=== PATIENT | female | born 1940 | race Caucasian/White ===

== ENCOUNTER 2018-02-28 07:36 | Inpatient (IN) ==
[2018-02-28] MEDS ORDERED: LEVOFLOXACIN INJ 750 MG in PREMIX 1 EACH IV STA (08:04)
[2018-02-28 08:44] LABS: Basophils # 0.1 10*3/uL (0.0-0.2); Basophils % 0.5 % (0.0-0.8); Eosinophils # 0.2 10*3/uL (0.0-0.87); Eosinophils % 1.9 % (0.00-10.9); Hematocrit 43.4 VOL% (35.7-47.0); Hemoglobin 14.8 GM/DL (12.0-16.0); Immature Granulocytes % 0.5 %; Immature Granulocytes Absolute 0.05 #; Lymphocytes # 1.5 10*3/uL (1.4-4.0); Lymphocytes % 15.2 % (21.3-54.2); Mean Corpuscular HGB Conc 34.1 GM/DL (32-36); Mean Corpuscular Hemoglobin 30 PG (27-34); Mean Corpuscular Volume 88.6 FL (87-102); Mean Platelet Volume 9.8 FL (9.6-12.0); Monocytes # 0.8 10*3/uL (0.11-0.8); Monocytes % 8.4 % (1.7-12.7); Neutrophils # 7.1 10*3/uL (1.4-7.4); Neutrophils % 73.5 % (38.7-73.9); Platelet Count 134 T/CUMM (130-400); White Blood Count 9.7 T/CUMM (4-12)
[2018-02-28 08:50] LABS: Apearance,Urine CLEAR (Clear); Bacteria,Urine Many /HPF (Few); Bilirubin,Urine Negative (Negative); Blood, Urine Small mg/dL (Negative); Glucose,Urine (UA) Negative (Negative); Ketones,Urine Negative (Negative); Mucus,Urine Occasional /LPF (Occasional); Nitrite,Urine Negative (Negative); Protein,Urine Negative; RBC,Urine 4 /HPF (0-4); Squamous Epithelial Cell,Urine Occasional /HPF (0-10); Urine Color Yellow (Yellow); Urine Specific Gravity 1.013 (1.001-1.035); Urine Urobilinogen < 2.0 EU/DL (0.2-1.0); WBC,Urine 2 /HPF (0-6)
[2018-02-28 09:07] LABS: Albumin 3.3 G/DL (3.4-5.0); Bilirubin,Total 1.6 MG/DL (0.2-1.0); Calcium 8.9 MG/DL (8.5-10.1); Osmolality,Calculated 280.5 MOS/KG (273-304); Potassium 3.9 MMOL/L (3.5-5.1); Total Protein 6.4 G/DL (6.4-8.3)
[2018-02-28] MEDS ORDERED: metroNIDAZOLE INJ 500 MG in PREMIX 1 EACH IV STA (09:56)
[2018-02-28] MEDS ORDERED: ONDANSETRON 4 MG/2 ML VIAL IV PRN (10:01)
[2018-02-28] MEDS ORDERED: ACETAMINOPHEN 325 MG TABLET PO PRN (10:01)
[2018-02-28] MEDS: SODIUM CHLORIDE 0.45% 1,000 ML IV SCH ×2 (10:42→22:11)
[2018-02-28] MEDS: ENOXAPARIN 30 MG/0.3 ML SYRINGE SUBCUT SCH (10:44)
[2018-02-28] MEDS: metroNIDAZOLE INJ 500 MG in PREMIX 1 EACH IV SCH ×2 (11:36→19:02)
[2018-02-28] MEDS ORDERED: CLORAZEPATE 3.75 MG TABLET PO PRN (11:58)
[2018-02-28] MEDS ORDERED: amLODIPine 5 MG TABLET PO SCH (12:00)
[2018-02-28] MEDS ORDERED: traMADol 50 MG TABLET PO PRN (12:08)
[2018-02-28] MEDS ORDERED: MORPHINE 4 MG/1 ML VIAL IM PRN (12:09)
[2018-02-28] MEDS: METOPROLOL TARTRATE 50 MG TABLET PO SCH ×2 (14:42→21:04)
[2018-02-28] MEDS: ASPIRIN CHEW 81 MG TABLET PO SCH (14:42)
[2018-02-28] MEDS: LOSARTAN 50 MG TABLET PO SCH ×2 (14:42→21:04)
[2018-02-28] MEDS: SERTRALINE 50 MG TABLET PO SCH (21:04)
[2018-03-01] MEDS: metroNIDAZOLE INJ 500 MG in PREMIX 1 EACH IV SCH ×3 (02:46→21:10)
[2018-03-01 03:51] LABS: Basophils % 0.3 % (0.0-0.8); Eosinophils # 0.3 10*3/uL (0.0-0.87); Eosinophils % 2.4 % (0.00-10.9); Hematocrit 39.1 VOL% (35.7-47.0); Hemoglobin 13.3 GM/DL (12.0-16.0); Immature Granulocytes % 0.4 %; Immature Granulocytes Absolute 0.04 #; Lymphocytes # 1.5 10*3/uL (1.4-4.0); Lymphocytes % 14.8 % (21.3-54.2); Mean Corpuscular Hemoglobin 30 PG (27-34); Mean Corpuscular Volume 88.5 FL (87-102); Monocytes # 0.9 10*3/uL (0.11-0.8); Monocytes % 9.1 % (1.7-12.7); Neutrophils # 7.5 10*3/uL (1.4-7.4); Platelet Count 125 T/CUMM (130-400); Red Blood Count 4.42 MC/CUMM (3.8-5.5); Red Cell Distribution Width 13.7 % (9.3-17.3); White Blood Count 10.3 T/CUMM (4-12)
[2018-03-01 04:04] LABS: Albumin 2.7 G/DL (3.4-5.0); Bilirubin,Direct 0.64 MG/DL (0.0-0.20); Bilirubin,Indirect 2.5 MG/DL (0.0-1.0); Bilirubin,Total 3.1 MG/DL (0.2-1.0); Calcium 8.1 MG/DL (8.5-10.1); Potassium 3.4 MMOL/L (3.5-5.1); Total Protein 5.8 G/DL (6.4-8.3)
[2018-03-01] MEDS: METOPROLOL TARTRATE 50 MG TABLET PO SCH ×2 (08:45→21:06)
[2018-03-01] MEDS: PANTOPRAZOLE 40 MG TABLET PO SCH (08:45)
[2018-03-01] MEDS: ASPIRIN CHEW 81 MG TABLET PO SCH (08:46)
[2018-03-01] MEDS: LOSARTAN 50 MG TABLET PO SCH ×2 (08:46→21:06)
[2018-03-01] MEDS: SODIUM CHLORIDE 0.45% 1,000 ML IV SCH ×2 (08:47→11:58)
[2018-03-01] MEDS ORDERED: LEVOFLOXACIN INJ 500 MG in PREMIX 1 EACH IV SCH (09:00)
[2018-03-01] MEDS: ENOXAPARIN 30 MG/0.3 ML SYRINGE SUBCUT SCH (11:57)
[2018-03-01] MEDS: SERTRALINE 50 MG TABLET PO SCH (21:06)
[2018-03-01] MEDS: SODIUM CHLOR 0.45% KCL 20 MEQ 20 MEQ/1,000 ML BAG IV SCH (22:59)
[2018-03-01] MEDS ORDERED: ALUM/MAG/SIMETH/LIDO VISC 1:1 30 ML BOTTLE PO ONE (23:00)
[2018-03-02 03:57] LABS: Red Blood Count 4.43 MC/CUMM (3.8-5.5); White Blood Count 6.9 T/CUMM (4-12)
[2018-03-02 03:58] LABS: Basophils % 0.4 % (0.0-0.8); Eosinophils # 0.3 10*3/uL (0.0-0.87); Eosinophils % 3.9 % (0.00-10.9); Hematocrit 39.2 VOL% (35.7-47.0); Hemoglobin 13.3 GM/DL (12.0-16.0); Immature Granulocytes % 0.4 %; Immature Granulocytes Absolute 0.03 #; Lymphocytes # 1.4 10*3/uL (1.4-4.0); Lymphocytes % 20.5 % (21.3-54.2); Mean Corpuscular HGB Conc 33.9 GM/DL (32-36); Mean Corpuscular Hemoglobin 30 PG (27-34); Mean Corpuscular Volume 88.5 FL (87-102); Mean Platelet Volume 10.2 FL (9.6-12.0); Monocytes # 0.6 10*3/uL (0.11-0.8); Monocytes % 8.6 % (1.7-12.7); Neutrophils # 4.6 10*3/uL (1.4-7.4); Neutrophils % 66.2 % (38.7-73.9); Platelet Count 122 T/CUMM (130-400); Red Cell Distribution Width 13.6 % (9.3-17.3)
[2018-03-02 04:06] LABS: Albumin 2.8 G/DL (3.4-5.0); Bilirubin,Direct 0.43 MG/DL (0.0-0.20); Bilirubin,Indirect 1.8 MG/DL (0.0-1.0); Bilirubin,Total 2.2 MG/DL (0.2-1.0); Calcium 8.6 MG/DL (8.5-10.1); Osmolality,Calculated 275.7 MOS/KG (273-304); Potassium 3.8 MMOL/L (3.5-5.1)
[2018-03-02] MEDS: metroNIDAZOLE INJ 500 MG in PREMIX 1 EACH IV SCH ×3 (04:57→20:37)
[2018-03-02] MEDS: LEVOFLOXACIN INJ 250 MG in PREMIX 1 EACH IV SCH (10:05)
[2018-03-02] MEDS: ASPIRIN CHEW 81 MG TABLET PO SCH (10:06)
[2018-03-02] MEDS: LOSARTAN 50 MG TABLET PO SCH ×2 (10:06→20:33)
[2018-03-02] MEDS: PANTOPRAZOLE 40 MG TABLET PO SCH (10:06)
[2018-03-02] MEDS: METOPROLOL TARTRATE 50 MG TABLET PO SCH ×2 (10:06→20:33)
[2018-03-02] MEDS: ENOXAPARIN 30 MG/0.3 ML SYRINGE SUBCUT SCH (10:06)
[2018-03-02] MEDS ORDERED: DOCUSATE SODIUM 100 MG CAPSULE PO PRN (12:14)
[2018-03-02] MEDS: hydrALAZINE 20 MG/1 ML VIAL IV PRN (14:15)
[2018-03-02] MEDS: SERTRALINE 50 MG TABLET PO SCH (20:33)
[2018-03-02] MEDS: DICYCLOMINE 10 MG CAPSULE PO SCH (20:33)
[2018-03-03] MEDS: NITROFURANTOIN MACRO/MONO 100 MG CAPSULE PO SCH ×3 (00:13→20:19)
[2018-03-03] MEDS: SODIUM CHLOR 0.45% KCL 20 MEQ 20 MEQ/1,000 ML BAG IV SCH (00:42)
[2018-03-03] MEDS: metroNIDAZOLE INJ 500 MG in PREMIX 1 EACH IV SCH ×3 (05:16→20:20)
[2018-03-03 06:14] LABS: Basophils % 0.4 % (0.0-0.8); Eosinophils # 0.3 10*3/uL (0.0-0.87); Eosinophils % 3.5 % (0.00-10.9); Hematocrit 38.8 VOL% (35.7-47.0); Hemoglobin 13.1 GM/DL (12.0-16.0); Immature Granulocytes % 0.6 %; Immature Granulocytes Absolute 0.04 #; Lymphocytes # 1.6 10*3/uL (1.4-4.0); Lymphocytes % 22.3 % (21.3-54.2); Mean Corpuscular HGB Conc 33.8 GM/DL (32-36); Mean Corpuscular Hemoglobin 30 PG (27-34); Mean Corpuscular Volume 88.4 FL (87-102); Mean Platelet Volume 10.2 FL (9.6-12.0); Monocytes # 0.7 10*3/uL (0.11-0.8); Neutrophils # 4.6 10*3/uL (1.4-7.4); Neutrophils % 63.2 % (38.7-73.9); Platelet Count 134 T/CUMM (130-400); Red Blood Count 4.39 MC/CUMM (3.8-5.5); Red Cell Distribution Width 14.1 % (9.3-17.3); White Blood Count 7.2 T/CUMM (4-12)
[2018-03-03 06:43] LABS: Calcium 8.5 MG/DL (8.5-10.1); Osmolality,Calculated 274.7 MOS/KG (273-304); Potassium 3.6 MMOL/L (3.5-5.1)
[2018-03-03 07:16] LABS: Albumin 2.6 G/DL (3.4-5.0); Bilirubin,Direct 0.25 MG/DL (0.0-0.20); Bilirubin,Indirect 1.2 MG/DL (0.0-1.0); Bilirubin,Total 1.4 MG/DL (0.2-1.0); Total Protein 5.7 G/DL (6.4-8.3)
[2018-03-03] MEDS: TRIAMTERENE/HCTZ 37.5-25 MG TABLET PO SCH (09:57)
[2018-03-03] MEDS: ASPIRIN CHEW 81 MG TABLET PO SCH (09:58)
[2018-03-03] MEDS: DICYCLOMINE 10 MG CAPSULE PO SCH ×2 (09:58→20:20)
[2018-03-03] MEDS: METOPROLOL TARTRATE 50 MG TABLET PO SCH ×2 (09:58→20:19)
[2018-03-03] MEDS: LOSARTAN 50 MG TABLET PO SCH ×2 (09:59→20:19)
[2018-03-03] MEDS: PANTOPRAZOLE 40 MG TABLET PO SCH (09:59)
[2018-03-03] MEDS: ENOXAPARIN 30 MG/0.3 ML SYRINGE SUBCUT SCH (10:01)
[2018-03-03] MEDS: LEVOFLOXACIN INJ 250 MG in PREMIX 1 EACH IV SCH (10:03)
[2018-03-03] MEDS: SERTRALINE 50 MG TABLET PO SCH (20:20)
[2018-03-04] MEDS: hydrALAZINE 20 MG/1 ML VIAL IV PRN (00:04)
[2018-03-04] MEDS: SODIUM CHLOR 0.45% KCL 20 MEQ 20 MEQ/1,000 ML BAG IV SCH (00:08)
[2018-03-04] MEDS: metroNIDAZOLE INJ 500 MG in PREMIX 1 EACH IV SCH ×2 (05:05→13:58)
[2018-03-04 06:19] LABS: Albumin 2.8 G/DL (3.4-5.0); Bilirubin,Direct 0.21 MG/DL (0.0-0.20); Bilirubin,Indirect 0.9 MG/DL (0.0-1.0); Bilirubin,Total 1.1 MG/DL (0.2-1.0); Calcium 8.3 MG/DL (8.5-10.1); Osmolality,Calculated 275.8 MOS/KG (273-304); Potassium 3.6 MMOL/L (3.5-5.1); Total Protein 5.6 G/DL (6.4-8.3)
[2018-03-04] MEDS: LEVOFLOXACIN INJ 250 MG in PREMIX 1 EACH IV SCH (09:04)
[2018-03-04] MEDS: LOSARTAN 50 MG TABLET PO SCH (09:08)
[2018-03-04] MEDS: NITROFURANTOIN MACRO/MONO 100 MG CAPSULE PO SCH (09:08)
[2018-03-04] MEDS: TRIAMTERENE/HCTZ 37.5-25 MG TABLET PO SCH (09:09)
[2018-03-04] MEDS: PANTOPRAZOLE 40 MG TABLET PO SCH (09:09)
[2018-03-04] MEDS: DICYCLOMINE 10 MG CAPSULE PO SCH (09:10)
[2018-03-04] MEDS: METOPROLOL TARTRATE 50 MG TABLET PO SCH (09:13)
[2018-03-04] MEDS: ASPIRIN CHEW 81 MG TABLET PO SCH (09:14)
[2018-03-04] MEDS: ENOXAPARIN 30 MG/0.3 ML SYRINGE SUBCUT SCH (14:05)
[2018-03-04 16:44] VITALS: BP 176/90
== END 2018-03-04 16:47 | disposition home or self-care (01) | DRG 392 ==
LOC: N.EDINP 07:36 → N.ED 07:36 → N.EDINP 11:13 → N.4E 11:22
PROVIDERS: ADMIT Family Medicine; ATTEND Family Medicine

== ENCOUNTER 2019-06-19 08:59 | Inpatient (IN) ==
[2019-06-19] MEDS ORDERED: SODIUM CHLORIDE 0.9% 1,000 ML IV STA ×2 (09:22→12:37)
[2019-06-19] MEDS ORDERED: ONDANSETRON 4 MG/2 ML VIAL IV STA (09:22)
[2019-06-19] MEDS ORDERED: HYDROmorphone 2 MG/1 ML VIAL IV STA (09:22)
[2019-06-19] MEDS ORDERED: PIPERACILLIN/TAZOBACTAM 3,375 MG in SODIUM CHLORIDE 0.9% 100 ML IV STA (09:22)
[2019-06-19] MEDS ORDERED: ONDANSETRON 4 MG/2 ML VIAL ONE (09:49)
[2019-06-19] MEDS ORDERED: HYDROmorphone 2 MG/1 ML VIAL ONE (09:49)
[2019-06-19] MEDS ORDERED: SODIUM CHLORIDE 0.9% 100 ML IV ONE (10:15)
[2019-06-19] MEDS ORDERED: PIPERACILLIN/TAZOBACTAM 3,375 MG VIAL IV ONE (10:15)
[2019-06-19 10:22] LABS: Basophils % 0.2 % (0.0-0.8); Eosinophils % 0.3 % (0.00-10.9); Hematocrit 44.2 VOL% (35.7-47.0); Hemoglobin 14.8 GM/DL (12.0-16.0); Immature Granulocytes % 0.4 %; Immature Granulocytes Absolute 0.06 #; Lymphocytes # 1.6 10*3/uL (1.4-4.0); Lymphocytes % 11.6 % (21.3-54.2); Mean Corpuscular HGB Conc 33.5 GM/DL (32-36); Mean Corpuscular Volume 90.8 FL (87-102); Mean Platelet Volume 9.8 FL (9.6-12.0); Monocytes % 5.6 % (1.7-12.7); Neutrophils % 81.9 % (38.7-73.9); Platelet Count 225 T/CUMM (130-400); Red Blood Count 4.87 MC/CUMM (3.8-5.5); Red Cell Distribution Width 13.8 % (9.3-17.3)
[2019-06-19 10:25] LABS: Apearance,Urine CLEAR (Clear); Bilirubin,Urine Negative (Negative); Blood, Urine Small mg/dL (Negative); Glucose,Urine (UA) Negative (Negative); Hyaline Casts,Urine 3 /LPF (0-3); Ketones,Urine Negative (Negative); Mucus,Urine Occasional /LPF (Occasional); Nitrite,Urine Negative (Negative); Protein,Urine Negative; RBC,Urine 13 /HPF (0-4); Squamous Epithelial Cell,Urine Occasional /HPF (0-10); Urine Color Yellow (Yellow); Urine Specific Gravity 1.013 (1.001-1.035); Urine Urobilinogen < 2.0 EU/DL (0.2-1.0); WBC,Urine 1 /HPF (0-6)
[2019-06-19 10:35] LABS: Alanine Aminotransferase 20 U/L (13-56); Albumin 3.6 G/DL (3.4-5.0); Alkaline Phosphatase 57 U/L (45-117); Aspartate Amino Transferase 15 U/L (0-37); Blood Urea Nitrogen 41 MG/DL (7-18); Calcium 9.3 MG/DL (8.5-10.1); Estimated Glom Filtration Rate 23 ML/MIN; Glucose 102 MG/DL (74-106); Osmolality,Calculated 284.7 MOS/KG (273-304); Total Protein 6.6 G/DL (6.4-8.3)
[2019-06-19] MEDS ORDERED: ACETAMINOPHEN 325 MG TABLET PO PRN (11:47)
[2019-06-19] MEDS ORDERED: POLYETHYLENE GLYCOL POWDER 17 GM PACK PO PRN (13:21)
[2019-06-19] MEDS ORDERED: CLORAZEPATE 3.75 MG TABLET PO PRN (13:21)
[2019-06-19] MEDS: SODIUM CHLORIDE 0.45% 1,000 ML IV SCH (13:33)
[2019-06-19] MEDS: metroNIDAZOLE INJ 500 MG in PREMIX 1 EACH IV SCH ×2 (13:33→21:40)
[2019-06-19] MEDS ORDERED: INFLUENZA VIRUS VACCINE 0.5 ML SYRINGE IM ONE (13:41)
[2019-06-19] MEDS: PIPERACILLIN/TAZOBACTAM 3,375 MG in SODIUM CHLORIDE 0.9% 100 ML IV SCH (18:02)
[2019-06-19] MEDS ORDERED: LOSARTAN 50 MG TABLET PO SCH (21:00)
[2019-06-19] MEDS: ENOXAPARIN 30 MG/0.3 ML SYRINGE SUBCUT SCH (21:36)
[2019-06-19] MEDS: DOCUSATE SODIUM 100 MG CAPSULE PO SCH (21:37)
[2019-06-19] MEDS: SERTRALINE 50 MG TABLET PO SCH (21:37)
[2019-06-19] MEDS: METOPROLOL TARTRATE 100 MG TABLET PO SCH (21:37)
[2019-06-20] MEDS: HYDROmorphone 2 MG/1 ML VIAL IV PRN ×3 (01:46→18:36)
[2019-06-20] MEDS: ONDANSETRON 4 MG/2 ML VIAL IV PRN ×3 (01:47→18:36)
[2019-06-20] MEDS: PIPERACILLIN/TAZOBACTAM 3,375 MG in SODIUM CHLORIDE 0.9% 100 ML IV SCH ×3 (02:37→18:26)
[2019-06-20] MEDS: SODIUM CHLORIDE 0.45% 1,000 ML IV SCH ×4 (02:39→23:45)
[2019-06-20 04:57] LABS: Basophils % 0.2 % (0.0-0.8); Eosinophils % 0.3 % (0.00-10.9); Hematocrit 41.7 VOL% (35.7-47.0); Hemoglobin 13.7 GM/DL (12.0-16.0); Immature Granulocytes % 0.6 %; Immature Granulocytes Absolute 0.08 #; Lymphocytes # 1.1 10*3/uL (1.4-4.0); Lymphocytes % 7.8 % (21.3-54.2); Mean Corpuscular HGB Conc 32.9 GM/DL (32-36); Mean Corpuscular Volume 92.5 FL (87-102); Monocytes % 4.8 % (1.7-12.7); Neutrophils % 86.3 % (38.7-73.9); Platelet Count 144 T/CUMM (130-400); Red Blood Count 4.51 MC/CUMM (3.8-5.5); Red Cell Distribution Width 14.2 % (9.3-17.3)
[2019-06-20 06:02] LABS: Band Neutrophils 2 % (0-10); Lymphocytes 7 % (20-55); Segmented Neutrophils 88 % (50-85); Total Cells Counted 100
[2019-06-20 06:03] LABS: Anisocytosis 1+; Platelet Estimate Adequate
[2019-06-20] MEDS: metroNIDAZOLE INJ 500 MG in PREMIX 1 EACH IV SCH ×3 (06:51→23:43)
[2019-06-20] MEDS ORDERED: TRIAMTERENE/HCTZ 37.5-25 MG TABLET PO SCH (09:00)
[2019-06-20] MEDS: METOPROLOL TARTRATE 100 MG TABLET PO SCH ×2 (09:16→21:07)
[2019-06-20] MEDS: PANTOPRAZOLE 40 MG TABLET PO SCH (09:16)
[2019-06-20] MEDS: amLODIPine 5 MG TABLET PO SCH (09:16)
[2019-06-20] MEDS: ASPIRIN CHEW 81 MG TABLET PO SCH (09:16)
[2019-06-20] MEDS: DOCUSATE SODIUM 100 MG CAPSULE PO SCH ×2 (09:16→21:06)
[2019-06-20] MEDS: ENOXAPARIN 30 MG/0.3 ML SYRINGE SUBCUT SCH (21:07)
[2019-06-20] MEDS: SERTRALINE 50 MG TABLET PO SCH (21:07)
[2019-06-21] MEDS: PIPERACILLIN/TAZOBACTAM 3,375 MG in SODIUM CHLORIDE 0.9% 100 ML IV SCH ×3 (02:38→18:42)
[2019-06-21 05:07] LABS: Basophils # 0.1 10*3/uL (0.0-0.2); Basophils % 0.3 % (0.0-0.8); Eosinophils % 0.2 % (0.00-10.9); Hematocrit 42.3 VOL% (35.7-47.0); Immature Granulocytes % 0.7 %; Immature Granulocytes Absolute 0.15 #; Lymphocytes # 1.2 10*3/uL (1.4-4.0); Lymphocytes % 5.7 % (21.3-54.2); Mean Corpuscular HGB Conc 33.1 GM/DL (32-36); Mean Corpuscular Volume 91.6 FL (87-102); Mean Platelet Volume 9.5 FL (9.6-12.0); Monocytes % 3.5 % (1.7-12.7); Neutrophils % 89.6 % (38.7-73.9); Platelet Count 179 T/CUMM (130-400); Red Blood Count 4.62 MC/CUMM (3.8-5.5); Red Cell Distribution Width 14.1 % (9.3-17.3); White Blood Count 20.5 T/CUMM (4-12)
[2019-06-21 05:35] LABS: Anisocytosis 1+; Band Neutrophils 1 % (0-10); Calcium 8.5 MG/DL (8.5-10.1); Lymphocytes 2 % (20-55); Myelocytes 1 %; Osmolality,Calculated 277.1 MOS/KG (273-304); Segmented Neutrophils 93 % (50-85); Total Cells Counted 100
[2019-06-21 05:36] LABS: Platelet Estimate Adequate
[2019-06-21] MEDS: metroNIDAZOLE INJ 500 MG in PREMIX 1 EACH IV SCH ×3 (06:46→23:22)
[2019-06-21] MEDS: SODIUM CHLORIDE 0.45% 1,000 ML IV SCH ×3 (09:02→23:23)
[2019-06-21] MEDS: amLODIPine 5 MG TABLET PO SCH (09:08)
[2019-06-21] MEDS: DOCUSATE SODIUM 100 MG CAPSULE PO SCH ×2 (09:08→21:22)
[2019-06-21] MEDS: PANTOPRAZOLE 40 MG TABLET PO SCH (09:08)
[2019-06-21] MEDS: ASPIRIN CHEW 81 MG TABLET PO SCH (09:08)
[2019-06-21] MEDS: METOPROLOL TARTRATE 100 MG TABLET PO SCH ×2 (09:08→21:23)
[2019-06-21] MEDS ORDERED: MAGNESIUM SULF RIDER 4 GM in PREMIX 1 EACH IV PRN (10:10)
[2019-06-21] MEDS ORDERED: MAGNESIUM SULF RIDER 2 GM in PREMIX 1 EACH IV PRN (10:10)
[2019-06-21] MEDS ORDERED: traMADol 50 MG TABLET PO PRN (11:43)
[2019-06-21] MEDS: ENOXAPARIN 30 MG/0.3 ML SYRINGE SUBCUT SCH (21:20)
[2019-06-21] MEDS: SERTRALINE 50 MG TABLET PO SCH (21:22)
[2019-06-22] MEDS: PIPERACILLIN/TAZOBACTAM 3,375 MG in SODIUM CHLORIDE 0.9% 100 ML IV SCH ×3 (02:11→19:38)
[2019-06-22 05:29] LABS: Basophils % 0.1 % (0.0-0.8); Eosinophils # 0.1 10*3/uL (0.0-0.87); Eosinophils % 0.9 % (0.00-10.9); Hematocrit 38.9 VOL% (35.7-47.0); Hemoglobin 13.2 GM/DL (12.0-16.0); Immature Granulocytes % 1.1 %; Immature Granulocytes Absolute 0.16 #; Lymphocytes % 6.6 % (21.3-54.2); Mean Corpuscular HGB Conc 33.9 GM/DL (32-36); Mean Corpuscular Volume 90.7 FL (87-102); Mean Platelet Volume 9.9 FL (9.6-12.0); Monocytes % 5.2 % (1.7-12.7); Neutrophils % 86.1 % (38.7-73.9); Platelet Count 152 T/CUMM (130-400); Red Blood Count 4.29 MC/CUMM (3.8-5.5); Red Cell Distribution Width 13.8 % (9.3-17.3); White Blood Count 15.2 T/CUMM (4-12)
[2019-06-22 05:38] LABS: Calcium 8.7 MG/DL (8.5-10.1); Osmolality,Calculated 278.7 MOS/KG (273-304)
[2019-06-22] MEDS: metroNIDAZOLE INJ 500 MG in PREMIX 1 EACH IV SCH ×2 (06:30→15:33)
[2019-06-22] MEDS: SODIUM CHLORIDE 0.45% 1,000 ML IV SCH ×3 (07:10→20:21)
[2019-06-22] MEDS: METOPROLOL TARTRATE 100 MG TABLET PO SCH ×2 (08:46→21:13)
[2019-06-22] MEDS: DOCUSATE SODIUM 100 MG CAPSULE PO SCH ×2 (08:46→21:13)
[2019-06-22] MEDS: ASPIRIN CHEW 81 MG TABLET PO SCH (08:46)
[2019-06-22] MEDS: amLODIPine 5 MG TABLET PO SCH (08:47)
[2019-06-22] MEDS: PANTOPRAZOLE 40 MG TABLET PO SCH (08:47)
[2019-06-22] MEDS: SERTRALINE 50 MG TABLET PO SCH (21:13)
[2019-06-22] MEDS: ENOXAPARIN 40 MG/0.4 ML SYRINGE SUBCUT SCH (21:13)
[2019-06-23] MEDS: metroNIDAZOLE INJ 500 MG in PREMIX 1 EACH IV SCH ×3 (00:54→17:18)
[2019-06-23] MEDS: PIPERACILLIN/TAZOBACTAM 3,375 MG in SODIUM CHLORIDE 0.9% 100 ML IV SCH ×3 (02:26→20:56)
[2019-06-23 05:37] LABS: Basophils % 0.3 % (0.0-0.8); Eosinophils # 0.3 10*3/uL (0.0-0.87); Eosinophils % 2.2 % (0.00-10.9); Hematocrit 37.5 VOL% (35.7-47.0); Hemoglobin 12.7 GM/DL (12.0-16.0); Immature Granulocytes Absolute 0.12 #; Mean Corpuscular HGB Conc 33.9 GM/DL (32-36); Mean Corpuscular Volume 90.4 FL (87-102); Mean Platelet Volume 9.6 FL (9.6-12.0); Monocytes % 7.9 % (1.7-12.7); Neutrophils % 80.6 % (38.7-73.9); Platelet Count 176 T/CUMM (130-400); Red Blood Count 4.15 MC/CUMM (3.8-5.5); Red Cell Distribution Width 13.9 % (9.3-17.3); White Blood Count 12.1 T/CUMM (4-12)
[2019-06-23 05:56] LABS: Calcium 8.2 MG/DL (8.5-10.1)
[2019-06-23] MEDS: ASPIRIN CHEW 81 MG TABLET PO SCH (08:05)
[2019-06-23] MEDS: PANTOPRAZOLE 40 MG TABLET PO SCH (08:05)
[2019-06-23] MEDS: DOCUSATE SODIUM 100 MG CAPSULE PO SCH (08:05)
[2019-06-23] MEDS: amLODIPine 5 MG TABLET PO SCH (08:05)
[2019-06-23] MEDS: METOPROLOL TARTRATE 100 MG TABLET PO SCH ×2 (08:06→20:59)
[2019-06-23] MEDS ORDERED: POTASSIUM CHLORIDE 20 MEQ TABLET PO ONE (09:18)
[2019-06-23] MEDS: ENOXAPARIN 40 MG/0.4 ML SYRINGE SUBCUT SCH (20:59)
[2019-06-23] MEDS: SERTRALINE 50 MG TABLET PO SCH (20:59)
[2019-06-23] MEDS: SODIUM CHLORIDE 0.45% 1,000 ML IV SCH ×2 (21:00)
[2019-06-24] MEDS: metroNIDAZOLE INJ 500 MG in PREMIX 1 EACH IV SCH ×3 (01:15→17:55)
[2019-06-24] MEDS: PIPERACILLIN/TAZOBACTAM 3,375 MG in SODIUM CHLORIDE 0.9% 100 ML IV SCH ×3 (04:07→20:30)
[2019-06-24] MEDS: SODIUM CHLORIDE 0.45% 1,000 ML IV SCH ×3 (04:07→20:32)
[2019-06-24 05:00] LABS: Basophils % 0.4 % (0.0-0.8); Eosinophils # 0.3 10*3/uL (0.0-0.87); Eosinophils % 3.1 % (0.00-10.9); Hematocrit 38.4 VOL% (35.7-47.0); Hemoglobin 12.8 GM/DL (12.0-16.0); Immature Granulocytes % 2.9 %; Immature Granulocytes Absolute 0.32 #; Lymphocytes # 1.1 10*3/uL (1.4-4.0); Lymphocytes % 10.3 % (21.3-54.2); Mean Corpuscular HGB Conc 33.3 GM/DL (32-36); Mean Platelet Volume 9.3 FL (9.6-12.0); Neutrophils % 74.3 % (38.7-73.9); Platelet Count 160 T/CUMM (130-400); Red Blood Count 4.22 MC/CUMM (3.8-5.5); Red Cell Distribution Width 13.7 % (9.3-17.3); White Blood Count 11.1 T/CUMM (4-12)
[2019-06-24 05:17] LABS: Calcium 8.3 MG/DL (8.5-10.1); Osmolality,Calculated 271.1 MOS/KG (273-304)
[2019-06-24] MEDS: PANTOPRAZOLE 40 MG TABLET PO SCH (09:35)
[2019-06-24] MEDS: amLODIPine 5 MG TABLET PO SCH (09:35)
[2019-06-24] MEDS: ASPIRIN CHEW 81 MG TABLET PO SCH (09:35)
[2019-06-24] MEDS: METOPROLOL TARTRATE 100 MG TABLET PO SCH ×2 (09:35→20:28)
[2019-06-24] MEDS ORDERED: ALUM/MAG/SIMETH/LIDO VISC 1:1 30 ML BOTTLE PO ONE (11:50)
[2019-06-24] MEDS: POTASSIUM CHLORIDE 20 MEQ TABLET PO SCH ×2 (12:47→20:28)
[2019-06-24] MEDS: SERTRALINE 50 MG TABLET PO SCH (20:28)
[2019-06-25] MEDS: metroNIDAZOLE INJ 500 MG in PREMIX 1 EACH IV SCH ×3 (01:00→12:49)
[2019-06-25] MEDS: PIPERACILLIN/TAZOBACTAM 3,375 MG in SODIUM CHLORIDE 0.9% 100 ML IV SCH ×2 (05:19→14:38)
[2019-06-25] MEDS: SODIUM CHLORIDE 0.45% 1,000 ML IV SCH ×2 (05:21→14:38)
[2019-06-25 06:04] LABS: Basophils # 0.1 10*3/uL (0.0-0.2); Basophils % 0.4 % (0.0-0.8); Eosinophils # 0.3 10*3/uL (0.0-0.87); Hematocrit 38.6 VOL% (35.7-47.0); Hemoglobin 12.8 GM/DL (12.0-16.0); Immature Granulocytes % 3.8 %; Immature Granulocytes Absolute 0.47 #; Lymphocytes # 1.1 10*3/uL (1.4-4.0); Lymphocytes % 8.6 % (21.3-54.2); Mean Corpuscular HGB Conc 33.2 GM/DL (32-36); Mean Corpuscular Volume 89.6 FL (87-102); Mean Platelet Volume 9.9 FL (9.6-12.0); Monocytes % 6.9 % (1.7-12.7); Neutrophils % 78.3 % (38.7-73.9); Platelet Count 177 T/CUMM (130-400); Red Blood Count 4.31 MC/CUMM (3.8-5.5); Red Cell Distribution Width 13.8 % (9.3-17.3); White Blood Count 12.4 T/CUMM (4-12)
[2019-06-25 06:21] LABS: Calcium 8.4 MG/DL (8.5-10.1); Osmolality,Calculated 274.8 MOS/KG (273-304)
[2019-06-25] MEDS ORDERED: LACTATED RINGERS 1,000 ML IV SCH (08:00)
[2019-06-25] MEDS: METOPROLOL TARTRATE 100 MG TABLET PO SCH (08:43)
[2019-06-25] MEDS: PANTOPRAZOLE 40 MG TABLET PO SCH (08:43)
[2019-06-25] MEDS: amLODIPine 5 MG TABLET PO SCH (08:43)
[2019-06-25] MEDS: ASPIRIN CHEW 81 MG TABLET PO SCH (08:43)
[2019-06-25] MEDS: POTASSIUM CHLORIDE 20 MEQ TABLET PO SCH (08:43)
[2019-06-25] MEDS ORDERED: FLUCONAZOLE 100 MG TABLET PO SCH (09:00)
[2019-06-25] MEDS ORDERED: TRIAMTERENE/HCTZ 37.5-25 MG TABLET PO SCH (09:00)
[2019-06-25] MEDS ORDERED: PROPOFOL 200 MG/20 ML VIAL IV ONE (11:23)
[2019-06-25] MEDS ORDERED: LIDOCAINE 100 MG/5 ML SYRINGE ONE (11:23)
[2019-06-25] MEDS ORDERED: POTASSIUM CHLORIDE 20 MEQ TABLET PO ONE (13:09)
[2019-06-25 13:13] VITALS: BP 157/70
== END 2019-06-25 15:36 | disposition home or self-care (01) | DRG 392 ==
LOC: N.ED 08:59 → N.EDINP 11:47 → N.3E 13:26
PROVIDERS: ADMIT Family Medicine; ATTEND Family Medicine

== ENCOUNTER 2019-07-15 08:54 | Inpatient (IN) ==
[2019-07-15] MEDS ORDERED: SODIUM CHLORIDE 0.9% 1,000 ML IV STA (09:22)
[2019-07-15 10:19] LABS: Basophils # 0.1 10*3/uL (0.0-0.2); Basophils % 0.6 % (0.0-0.8); Eosinophils # 0.2 10*3/uL (0.0-0.87); Hematocrit 41.6 VOL% (35.7-47.0); Immature Granulocytes % 2.3 %; Immature Granulocytes Absolute 0.25 #; Lymphocytes # 1.6 10*3/uL (1.4-4.0); Lymphocytes % 14.5 % (21.3-54.2); Mean Corpuscular HGB Conc 33.7 GM/DL (32-36); Mean Corpuscular Volume 86.8 FL (87-102); Mean Platelet Volume 9.6 FL (9.6-12.0); Monocytes % 10.6 % (1.7-12.7); Platelet Count 276 T/CUMM (130-400); Red Blood Count 4.79 MC/CUMM (3.8-5.5); Red Cell Distribution Width 13.2 % (9.3-17.3); White Blood Count 10.8 T/CUMM (4-12)
[2019-07-15 10:24] LABS: Amorphous Crystals,Urine Occasional /HPF (Few); Apearance,Urine Slightly Hazy (Clear); Bacteria,Urine Occasional /HPF (Few); Bilirubin,Urine Negative (Negative); Blood, Urine Moderate mg/dL (Negative); Glucose,Urine (UA) Negative (Negative); Hyaline Casts,Urine 5 /LPF (0-3); Ketones,Urine Negative (Negative); Mucus,Urine Occasional /LPF (Occasional); Nitrite,Urine Negative (Negative); Protein,Urine 30 MG/DL; RBC,Urine 2 /HPF (0-4); Squamous Epithelial Cell,Urine Occasional /HPF (0-10); Urine Color Amber (Yellow); Urine Specific Gravity 1.018 (1.001-1.035); Urine Urobilinogen < 2.0 EU/DL (0.2-1.0); WBC,Urine 17 /HPF (0-6)
[2019-07-15] MEDS ORDERED: PIPERACILLIN/TAZOBACTAM 3,375 MG in SODIUM CHLORIDE 0.9% 100 ML IV STA (10:32)
[2019-07-15] MEDS ORDERED: ACETAMINOPHEN 325 MG TABLET PO PRN (10:34)
[2019-07-15 10:37] LABS: Albumin 2.9 G/DL (3.4-5.0); Calcium 9.7 MG/DL (8.5-10.1); Osmolality,Calculated 268.5 MOS/KG (273-304); Total Protein 7.4 G/DL (6.4-8.3)
[2019-07-15] MEDS: SODIUM CHLORIDE 0.9% 1,000 ML IV SCH ×3 (14:30→19:08)
[2019-07-15] MEDS ORDERED: INFLUENZA VIRUS VACCINE 0.5 ML SYRINGE IM ONE (15:20)
[2019-07-15] MEDS: metroNIDAZOLE INJ 500 MG in PREMIX 1 EACH IV SCH ×2 (15:52→22:28)
[2019-07-15] MEDS ORDERED: LEVOFLOXACIN INJ 500 MG in PREMIX 1 EACH IV ONE (16:00)
[2019-07-15] MEDS: CLINDAMYCIN INJ 600 MG in PREMIX 1 EACH IV SCH (18:45)
[2019-07-15] MEDS: DOCUSATE SODIUM 100 MG CAPSULE PO SCH (21:16)
[2019-07-15] MEDS: METOPROLOL TARTRATE 100 MG TABLET PO SCH (21:17)
[2019-07-16] MEDS: CLINDAMYCIN INJ 600 MG in PREMIX 1 EACH IV SCH ×5 (00:23→23:55)
[2019-07-16] MEDS: SODIUM CHLORIDE 0.9% 1,000 ML IV SCH ×4 (02:55→22:54)
[2019-07-16 04:45] LABS: Basophils # 0.1 10*3/uL (0.0-0.2); Basophils % 0.6 % (0.0-0.8); Eosinophils # 0.2 10*3/uL (0.0-0.87); Eosinophils % 2.8 % (0.00-10.9); Hematocrit 32.7 VOL% (35.7-47.0); Hemoglobin 10.8 GM/DL (12.0-16.0); Immature Granulocytes % 2.3 %; Immature Granulocytes Absolute 0.18 #; Lymphocytes # 1.2 10*3/uL (1.4-4.0); Lymphocytes % 15.8 % (21.3-54.2); Mean Corpuscular Volume 88.1 FL (87-102); Mean Platelet Volume 9.7 FL (9.6-12.0); Monocytes % 12.8 % (1.7-12.7); Neutrophils % 65.7 % (38.7-73.9); Platelet Count 214 T/CUMM (130-400); Red Blood Count 3.71 MC/CUMM (3.8-5.5); Red Cell Distribution Width 13.2 % (9.3-17.3); White Blood Count 7.9 T/CUMM (4-12)
[2019-07-16 05:03] LABS: Albumin 2.2 G/DL (3.4-5.0); Bilirubin,Total 0.7 MG/DL (0.2-1.0); Calcium 8.3 MG/DL (8.5-10.1); Total Protein 5.4 G/DL (6.4-8.3)
[2019-07-16] MEDS: metroNIDAZOLE INJ 500 MG in PREMIX 1 EACH IV SCH (06:53)
[2019-07-16] MEDS: MAGNESIUM CHLORIDE 64 MG TABLET PO SCH (08:46)
[2019-07-16] MEDS: amLODIPine 5 MG TABLET PO SCH (08:46)
[2019-07-16] MEDS: PANTOPRAZOLE 40 MG TABLET PO SCH (08:47)
[2019-07-16] MEDS: DOCUSATE SODIUM 100 MG CAPSULE PO SCH ×2 (08:47→20:47)
[2019-07-16] MEDS: METOPROLOL TARTRATE 100 MG TABLET PO SCH ×2 (08:47→20:47)
[2019-07-16] MEDS: LEVOFLOXACIN INJ 250 MG in PREMIX 1 EACH IV SCH (15:50)
[2019-07-17] MEDS: SODIUM CHLORIDE 0.9% 1,000 ML IV SCH ×4 (04:19→20:10)
[2019-07-17 05:10] LABS: Basophils % 0.4 % (0.0-0.8); Eosinophils # 0.2 10*3/uL (0.0-0.87); Eosinophils % 2.7 % (0.00-10.9); Hematocrit 31.9 VOL% (35.7-47.0); Hemoglobin 10.5 GM/DL (12.0-16.0); Immature Granulocytes % 2.6 %; Immature Granulocytes Absolute 0.18 #; Lymphocytes # 1.3 10*3/uL (1.4-4.0); Lymphocytes % 18.9 % (21.3-54.2); Mean Corpuscular HGB Conc 32.9 GM/DL (32-36); Mean Corpuscular Volume 88.1 FL (87-102); Mean Platelet Volume 9.9 FL (9.6-12.0); Monocytes % 12.4 % (1.7-12.7); Platelet Count 205 T/CUMM (130-400); Red Blood Count 3.62 MC/CUMM (3.8-5.5); Red Cell Distribution Width 13.2 % (9.3-17.3); White Blood Count 6.9 T/CUMM (4-12)
[2019-07-17 05:34] LABS: Albumin 2.3 G/DL (3.4-5.0); Bilirubin,Total 0.6 MG/DL (0.2-1.0); Calcium 8.2 MG/DL (8.5-10.1); Osmolality,Calculated 281.3 MOS/KG (273-304); Total Protein 5.5 G/DL (6.4-8.3)
[2019-07-17] MEDS: CLINDAMYCIN INJ 600 MG in PREMIX 1 EACH IV SCH ×3 (06:10→17:46)
[2019-07-17] MEDS: amLODIPine 5 MG TABLET PO SCH (09:06)
[2019-07-17] MEDS: DOCUSATE SODIUM 100 MG CAPSULE PO SCH ×2 (09:06→21:55)
[2019-07-17] MEDS: MAGNESIUM SULF RIDER 4 GM in PREMIX 1 EACH IV PRN (09:06)
[2019-07-17] MEDS: PANTOPRAZOLE 40 MG TABLET PO SCH (09:06)
[2019-07-17] MEDS: METOPROLOL TARTRATE 100 MG TABLET PO SCH ×2 (09:06→21:55)
[2019-07-17] MEDS: MAGNESIUM CHLORIDE 64 MG TABLET PO SCH (09:06)
[2019-07-17] MEDS: LEVOFLOXACIN INJ 250 MG in PREMIX 1 EACH IV SCH (15:31)
[2019-07-17] MEDS: POTASSIUM CHLORIDE RIDER 10 MEQ in PREMIX 1 EACH IV PRN ×3 (19:30→23:46)
[2019-07-18] MEDS: CLINDAMYCIN INJ 600 MG in PREMIX 1 EACH IV SCH ×4 (00:53→19:15)
[2019-07-18] MEDS: SODIUM CHLORIDE 0.9% 1,000 ML IV SCH ×3 (04:15→19:00)
[2019-07-18 05:58] LABS: Basophils % 0.3 % (0.0-0.8); Eosinophils # 0.2 10*3/uL (0.0-0.87); Hematocrit 31.8 VOL% (35.7-47.0); Hemoglobin 10.5 GM/DL (12.0-16.0); Immature Granulocytes % 1.6 %; Immature Granulocytes Absolute 0.14 #; Lymphocytes # 1.4 10*3/uL (1.4-4.0); Lymphocytes % 15.8 % (21.3-54.2); Mean Corpuscular Volume 88.1 FL (87-102); Mean Platelet Volume 9.6 FL (9.6-12.0); Monocytes % 12.3 % (1.7-12.7); Platelet Count 211 T/CUMM (130-400); Red Blood Count 3.61 MC/CUMM (3.8-5.5); Red Cell Distribution Width 13.2 % (9.3-17.3); White Blood Count 8.8 T/CUMM (4-12)
[2019-07-18 06:22] LABS: Alanine Aminotransferase < 9 U/L (13-56); Albumin 2.4 G/DL (3.4-5.0); Alkaline Phosphatase 60 U/L (45-117); Aspartate Amino Transferase 9 U/L (0-37); Blood Urea Nitrogen 10 MG/DL (7-18); Calcium 8.4 MG/DL (8.5-10.1); Estimated Glom Filtration Rate 32 ML/MIN; Glucose 105 MG/DL (74-106); Osmolality,Calculated 277.4 MOS/KG (273-304); Total Protein 5.6 G/DL (6.4-8.3)
[2019-07-18] MEDS: PANTOPRAZOLE 40 MG TABLET PO SCH (10:01)
[2019-07-18] MEDS: amLODIPine 5 MG TABLET PO SCH (10:01)
[2019-07-18] MEDS: METOPROLOL TARTRATE 100 MG TABLET PO SCH ×2 (10:02→21:48)
[2019-07-18] MEDS: DOCUSATE SODIUM 100 MG CAPSULE PO SCH ×2 (10:02→21:47)
[2019-07-18] MEDS: MAGNESIUM CHLORIDE 64 MG TABLET PO SCH (10:02)
[2019-07-18] MEDS: POTASSIUM CHLORIDE RIDER 10 MEQ in PREMIX 1 EACH IV PRN ×3 (10:05→17:23)
[2019-07-18] MEDS: LEVOFLOXACIN INJ 250 MG in PREMIX 1 EACH IV SCH (15:39)
[2019-07-18] MEDS: ONDANSETRON 4 MG/2 ML VIAL IV PRN (22:32)
[2019-07-19] MEDS: SODIUM CHLORIDE 0.9% 1,000 ML IV SCH ×4 (00:04→21:45)
[2019-07-19] MEDS: CLINDAMYCIN INJ 600 MG in PREMIX 1 EACH IV SCH ×4 (01:36→19:14)
[2019-07-19 05:39] LABS: Basophils % 0.5 % (0.0-0.8); Eosinophils # 0.2 10*3/uL (0.0-0.87); Eosinophils % 2.5 % (0.00-10.9); Hematocrit 31.4 VOL% (35.7-47.0); Hemoglobin 10.1 GM/DL (12.0-16.0); Immature Granulocytes % 1.6 %; Immature Granulocytes Absolute 0.13 #; Lymphocytes # 1.2 10*3/uL (1.4-4.0); Lymphocytes % 15.4 % (21.3-54.2); Mean Corpuscular HGB Conc 32.2 GM/DL (32-36); Mean Corpuscular Volume 89.5 FL (87-102); Mean Platelet Volume 9.7 FL (9.6-12.0); Monocytes % 11.3 % (1.7-12.7); Neutrophils % 68.7 % (38.7-73.9); Platelet Count 193 T/CUMM (130-400); Red Blood Count 3.51 MC/CUMM (3.8-5.5); Red Cell Distribution Width 13.5 % (9.3-17.3)
[2019-07-19 06:02] LABS: Alanine Aminotransferase < 9 U/L (13-56); Albumin 2.1 G/DL (3.4-5.0); Alkaline Phosphatase 52 U/L (45-117); Aspartate Amino Transferase 8 U/L (0-37); Blood Urea Nitrogen 8 MG/DL (7-18); Estimated Glom Filtration Rate 37 ML/MIN; Glucose 98 MG/DL (74-106); Osmolality,Calculated 270.8 MOS/KG (273-304); Total Protein 5.3 G/DL (6.4-8.3)
[2019-07-19] MEDS: PANTOPRAZOLE 40 MG TABLET PO SCH (10:10)
[2019-07-19] MEDS: DOCUSATE SODIUM 100 MG CAPSULE PO SCH ×2 (10:11→21:43)
[2019-07-19] MEDS: MAGNESIUM CHLORIDE 64 MG TABLET PO SCH (10:11)
[2019-07-19] MEDS: amLODIPine 5 MG TABLET PO SCH (10:11)
[2019-07-19] MEDS: METOPROLOL TARTRATE 100 MG TABLET PO SCH ×2 (10:11→21:43)
[2019-07-19] MEDS: MAGNESIUM SULF RIDER 4 GM in PREMIX 1 EACH IV PRN (10:12)
[2019-07-19] MEDS: POTASSIUM CHLORIDE 20 MEQ TABLET PO PRN ×4 (14:26→21:43)
[2019-07-19] MEDS: LEVOFLOXACIN INJ 250 MG in PREMIX 1 EACH IV SCH (15:38)
[2019-07-20] MEDS: CLINDAMYCIN INJ 600 MG in PREMIX 1 EACH IV SCH ×4 (01:37→18:37)
[2019-07-20] MEDS: SODIUM CHLORIDE 0.9% 1,000 ML IV SCH ×2 (03:00→16:13)
[2019-07-20 04:49] LABS: Basophils % 0.3 % (0.0-0.8); Eosinophils # 0.2 10*3/uL (0.0-0.87); Eosinophils % 2.4 % (0.00-10.9); Hematocrit 33.6 VOL% (35.7-47.0); Hemoglobin 11.1 GM/DL (12.0-16.0); Immature Granulocytes % 1.4 %; Immature Granulocytes Absolute 0.13 #; Lymphocytes # 1.5 10*3/uL (1.4-4.0); Lymphocytes % 15.5 % (21.3-54.2); Mean Platelet Volume 9.6 FL (9.6-12.0); Monocytes % 9.5 % (1.7-12.7); Neutrophils % 70.9 % (38.7-73.9); Platelet Count 220 T/CUMM (130-400); Red Blood Count 3.82 MC/CUMM (3.8-5.5); Red Cell Distribution Width 13.4 % (9.3-17.3); White Blood Count 9.6 T/CUMM (4-12)
[2019-07-20 05:23] LABS: Alanine Aminotransferase < 9 U/L (13-56); Albumin 2.5 G/DL (3.4-5.0); Alkaline Phosphatase 59 U/L (45-117); Aspartate Amino Transferase 6 U/L (0-37); Blood Urea Nitrogen 7 MG/DL (7-18); Calcium 8.3 MG/DL (8.5-10.1); Estimated Glom Filtration Rate 34 ML/MIN; Glucose 102 MG/DL (74-106); Osmolality,Calculated 272.7 MOS/KG (273-304)
[2019-07-20] MEDS: PANTOPRAZOLE 40 MG TABLET PO SCH ×2 (09:39→10:28)
[2019-07-20] MEDS: METOPROLOL TARTRATE 100 MG TABLET PO SCH ×3 (09:39→22:06)
[2019-07-20] MEDS: DOCUSATE SODIUM 100 MG CAPSULE PO SCH ×3 (09:39→22:06)
[2019-07-20] MEDS: amLODIPine 5 MG TABLET PO SCH ×2 (09:39→10:27)
[2019-07-20] MEDS: MAGNESIUM CHLORIDE 64 MG TABLET PO SCH ×2 (09:39→10:27)
[2019-07-20] MEDS: LEVOFLOXACIN INJ 250 MG in PREMIX 1 EACH IV SCH (17:17)
[2019-07-21] MEDS: SODIUM CHLORIDE 0.9% 1,000 ML IV SCH ×4 (01:39→21:07)
[2019-07-21] MEDS: CLINDAMYCIN INJ 600 MG in PREMIX 1 EACH IV SCH ×4 (01:40→18:30)
[2019-07-21 06:22] LABS: Basophils % 0.5 % (0.0-0.8); Eosinophils # 0.3 10*3/uL (0.0-0.87); Eosinophils % 3.2 % (0.00-10.9); Hematocrit 33.3 VOL% (35.7-47.0); Hemoglobin 11.1 GM/DL (12.0-16.0); Immature Granulocytes % 1.1 %; Lymphocytes # 1.3 10*3/uL (1.4-4.0); Lymphocytes % 14.1 % (21.3-54.2); Mean Corpuscular HGB Conc 33.3 GM/DL (32-36); Mean Corpuscular Volume 86.9 FL (87-102); Mean Platelet Volume 9.3 FL (9.6-12.0); Monocytes % 9.6 % (1.7-12.7); Neutrophils % 71.5 % (38.7-73.9); Platelet Count 221 T/CUMM (130-400); Red Blood Count 3.83 MC/CUMM (3.8-5.5); Red Cell Distribution Width 13.3 % (9.3-17.3); White Blood Count 8.8 T/CUMM (4-12)
[2019-07-21 06:58] LABS: Alanine Aminotransferase < 9 U/L (13-56); Albumin 2.4 G/DL (3.4-5.0); Alkaline Phosphatase 59 U/L (45-117); Aspartate Amino Transferase 9 U/L (0-37); Blood Urea Nitrogen 5 MG/DL (7-18); Calcium 8.8 MG/DL (8.5-10.1); Estimated Glom Filtration Rate 41 ML/MIN; Glucose 97 MG/DL (74-106); Total Protein 6.1 G/DL (6.4-8.3)
[2019-07-21] MEDS: METOPROLOL TARTRATE 100 MG TABLET PO SCH ×2 (09:19→21:05)
[2019-07-21] MEDS: DOCUSATE SODIUM 100 MG CAPSULE PO SCH ×2 (09:20→21:05)
[2019-07-21] MEDS: MAGNESIUM CHLORIDE 64 MG TABLET PO SCH (09:20)
[2019-07-21] MEDS: PANTOPRAZOLE 40 MG TABLET PO SCH (09:20)
[2019-07-21] MEDS: amLODIPine 5 MG TABLET PO SCH (09:23)
[2019-07-21] MEDS: LEVOFLOXACIN INJ 250 MG in PREMIX 1 EACH IV SCH (15:30)
[2019-07-21] MEDS: COLCHICINE 0.6 MG CAPSULE PO SCH (15:34)
[2019-07-22] MEDS: CLINDAMYCIN INJ 600 MG in PREMIX 1 EACH IV SCH ×4 (01:44→21:36)
[2019-07-22] MEDS: METOPROLOL TARTRATE 100 MG TABLET PO SCH ×2 (08:33→21:37)
[2019-07-22] MEDS: amLODIPine 5 MG TABLET PO SCH (08:33)
[2019-07-22] MEDS ORDERED: ROPIVACAINE 0.5% 30 ML VIAL ONE (10:34)
[2019-07-22] MEDS ORDERED: LIDOCAINE 2% 5 ML VIAL ONE ×2 (10:34→13:52)
[2019-07-22] MEDS ORDERED: DEXAMETHASONE 4 MG/1 ML VIAL ONE ×2 (10:34→13:52)
[2019-07-22] MEDS ORDERED: fentaNYL 100 MCG/2 ML VIAL ONE ×2 (10:34→13:52)
[2019-07-22] MEDS ORDERED: MIDAZOLAM 2 MG/2 ML VIAL ONE (10:34)
[2019-07-22] MEDS ORDERED: PROPOFOL 200 MG/20 ML VIAL IV ONE (13:52)
[2019-07-22] MEDS ORDERED: SEVOFLURANE 1 UNIT/15 MINUTE INH ONE (13:52)
[2019-07-22] MEDS ORDERED: ONDANSETRON 4 MG/2 ML VIAL ONE (13:52)
[2019-07-22] MEDS ORDERED: PHENYLEPHRINE 1 MG/10 ML SYRINGE IV ONE (13:53)
[2019-07-22] MEDS ORDERED: ROCURONIUM 100 MG/10 ML VIAL IV ONE (13:53)
[2019-07-22] MEDS ORDERED: GLYCOPYRROLATE 0.4 MG/2 ML VIAL ONE (13:54)
[2019-07-22] MEDS ORDERED: NEOSTIGMINE 10 MG/10 ML VIAL ONE (13:54)
[2019-07-22 13:59] LABS: Apearance,Urine CLEAR (Clear); Bacteria,Urine Occasional /HPF (Few); Bilirubin,Urine Negative (Negative); Blood, Urine Negative (Negative); Glucose,Urine (UA) Negative (Negative); Ketones,Urine Negative (Negative); Mucus,Urine Occasional /LPF (Occasional); Nitrite,Urine Negative (Negative); Protein,Urine Negative; RBC,Urine 1 /HPF (0-4); Squamous Epithelial Cell,Urine Occasional /HPF (0-10); Urine Color Straw (Yellow); Urine Specific Gravity 1.005 (1.001-1.035); Urine Urobilinogen < 2.0 EU/DL (0.2-1.0); WBC,Urine <1 /HPF (0-6)
[2019-07-22] MEDS ORDERED: DESFLURANE 1 UNIT/15 MINUTE INH ONE (14:34)
[2019-07-22 14:59] LABS: Hematocrit 30.2 VOL% (35.7-47.0); Hemoglobin 10.1 GM/DL (12.0-16.0)
[2019-07-22] MEDS: DOCUSATE SODIUM 100 MG CAPSULE PO SCH ×2 (15:15→21:37)
[2019-07-22] MEDS: SODIUM CHLORIDE 0.9% 1,000 ML IV SCH (15:51)
[2019-07-22] MEDS: PANTOPRAZOLE 40 MG TABLET PO SCH (15:58)
[2019-07-22] MEDS: COLCHICINE 0.6 MG CAPSULE PO SCH (15:59)
[2019-07-22] MEDS: MAGNESIUM CHLORIDE 64 MG TABLET PO SCH (15:59)
[2019-07-22] MEDS: traMADol 50 MG TABLET PO PRN (17:31)
[2019-07-22] MEDS: LEVOFLOXACIN INJ 250 MG in PREMIX 1 EACH IV SCH (17:32)
[2019-07-22 22:37] LABS: Hematocrit 29.5 VOL% (35.7-47.0); Hemoglobin 9.9 GM/DL (12.0-16.0)
[2019-07-22] MEDS ORDERED: LACTATED RINGERS 500 ML IV ONE (22:51)
[2019-07-22] MEDS: DEXTROSE 5% LACTATED RINGERS 1,000 ML IV SCH (23:29)
[2019-07-23] MEDS: CLINDAMYCIN INJ 600 MG in PREMIX 1 EACH IV SCH (02:29)
[2019-07-23 05:54] LABS: Basophils % 0.1 % (0.0-0.8); Eosinophils % 0.1 % (0.00-10.9); Hematocrit 24.8 VOL% (35.7-47.0); Hemoglobin 8.4 GM/DL (12.0-16.0); Immature Granulocytes % 0.6 %; Immature Granulocytes Absolute 0.08 #; Lymphocytes # 0.9 10*3/uL (1.4-4.0); Lymphocytes % 6.4 % (21.3-54.2); Mean Corpuscular HGB Conc 33.9 GM/DL (32-36); Mean Corpuscular Volume 85.8 FL (87-102); Mean Platelet Volume 9.4 FL (9.6-12.0); Monocytes % 7.3 % (1.7-12.7); Neutrophils % 85.5 % (38.7-73.9); Platelet Count 181 T/CUMM (130-400); Red Blood Count 2.89 MC/CUMM (3.8-5.5); Red Cell Distribution Width 13.3 % (9.3-17.3); White Blood Count 14.5 T/CUMM (4-12)
[2019-07-23 06:39] LABS: Alanine Aminotransferase < 9 U/L (13-56); Albumin 1.8 G/DL (3.4-5.0); Alkaline Phosphatase 55 U/L (45-117); Aspartate Amino Transferase 9 U/L (0-37); Blood Urea Nitrogen 9 MG/DL (7-18); Estimated Glom Filtration Rate 34 ML/MIN; Glucose 140 MG/DL (74-106); Total Protein 4.7 G/DL (6.4-8.3)
[2019-07-23] MEDS: DEXTROSE 5% LACTATED RINGERS 1,000 ML IV SCH ×2 (07:03→13:36)
[2019-07-23] MEDS: DOCUSATE SODIUM 100 MG CAPSULE PO SCH ×2 (08:21→21:36)
[2019-07-23] MEDS: MAGNESIUM CHLORIDE 64 MG TABLET PO SCH (08:21)
[2019-07-23] MEDS: PANTOPRAZOLE 40 MG TABLET PO SCH (08:21)
[2019-07-23] MEDS: amLODIPine 5 MG TABLET PO SCH (08:22)
[2019-07-23] MEDS: COLCHICINE 0.6 MG CAPSULE PO SCH (08:22)
[2019-07-23] MEDS: METOPROLOL TARTRATE 100 MG TABLET PO SCH ×2 (08:22→21:36)
[2019-07-23] MEDS: MAGNESIUM SULF RIDER 4 GM in PREMIX 1 EACH IV PRN (09:49)
[2019-07-23] MEDS: POTASSIUM CHLORIDE 20 MEQ TABLET PO PRN ×3 (09:55→13:36)
[2019-07-23] MEDS: LEVOFLOXACIN INJ 500 MG in PREMIX 1 EACH IV SCH (15:08)
[2019-07-23] MEDS: traMADol 50 MG TABLET PO PRN (16:50)
[2019-07-24] MEDS: DEXTROSE 5% LACTATED RINGERS 1,000 ML IV SCH ×2 (03:34→22:28)
[2019-07-24 05:16] LABS: Basophils % 0.4 % (0.0-0.8); Eosinophils # 0.2 10*3/uL (0.0-0.87); Eosinophils % 3.2 % (0.00-10.9); Hematocrit 24.3 VOL% (35.7-47.0); Hemoglobin 7.9 GM/DL (12.0-16.0); Immature Granulocytes % 0.8 %; Immature Granulocytes Absolute 0.06 #; Lymphocytes # 1.2 10*3/uL (1.4-4.0); Lymphocytes % 16.9 % (21.3-54.2); Mean Corpuscular HGB Conc 32.5 GM/DL (32-36); Mean Corpuscular Volume 88.7 FL (87-102); Mean Platelet Volume 8.9 FL (9.6-12.0); Monocytes % 9.8 % (1.7-12.7); Neutrophils % 68.9 % (38.7-73.9); Platelet Count 153 T/CUMM (130-400); Red Blood Count 2.74 MC/CUMM (3.8-5.5); Red Cell Distribution Width 13.5 % (9.3-17.3); White Blood Count 7.2 T/CUMM (4-12)
[2019-07-24 05:46] LABS: Alanine Aminotransferase < 9 U/L (13-56); Albumin 1.8 G/DL (3.4-5.0); Alkaline Phosphatase 54 U/L (45-117); Aspartate Amino Transferase 9 U/L (0-37); Blood Urea Nitrogen 10 MG/DL (7-18); Calcium 8.3 MG/DL (8.5-10.1); Estimated Glom Filtration Rate 40 ML/MIN; Glucose 111 MG/DL (74-106); Total Protein 4.7 G/DL (6.4-8.3)
[2019-07-24] MEDS: COLCHICINE 0.6 MG CAPSULE PO SCH (09:24)
[2019-07-24] MEDS: amLODIPine 5 MG TABLET PO SCH (09:24)
[2019-07-24] MEDS: traMADol 50 MG TABLET PO PRN ×2 (09:25→20:59)
[2019-07-24] MEDS: PANTOPRAZOLE 40 MG TABLET PO SCH (09:25)
[2019-07-24] MEDS: MAGNESIUM CHLORIDE 64 MG TABLET PO SCH (09:26)
[2019-07-24] MEDS: DOCUSATE SODIUM 100 MG CAPSULE PO SCH ×2 (09:26→20:59)
[2019-07-24] MEDS: METOPROLOL TARTRATE 100 MG TABLET PO SCH ×2 (09:26→21:00)
[2019-07-24] MEDS ORDERED: SODIUM CHLORIDE 0.9% 1,000 ML IV PRN (11:34)
[2019-07-24] MEDS ORDERED: FUROSEMIDE 20 MG/2 ML VIAL IV ONE (11:35)
[2019-07-24] MEDS ORDERED: ACETAMINOPHEN 325 MG TABLET PO ONE (11:37)
[2019-07-25 05:40] LABS: Basophils % 0.5 % (0.0-0.8); Eosinophils # 0.4 10*3/uL (0.0-0.87); Eosinophils % 5.5 % (0.00-10.9); Hematocrit 30.9 VOL% (35.7-47.0); Hemoglobin 10.4 GM/DL (12.0-16.0); Immature Granulocytes % 0.6 %; Immature Granulocytes Absolute 0.04 #; Lymphocytes # 1.2 10*3/uL (1.4-4.0); Lymphocytes % 18.3 % (21.3-54.2); Mean Corpuscular HGB Conc 33.7 GM/DL (32-36); Mean Corpuscular Volume 86.6 FL (87-102); Mean Platelet Volume 9.3 FL (9.6-12.0); Monocytes % 8.7 % (1.7-12.7); Neutrophils % 66.4 % (38.7-73.9); Platelet Count 166 T/CUMM (130-400); Red Blood Count 3.57 MC/CUMM (3.8-5.5); Red Cell Distribution Width 13.4 % (9.3-17.3); White Blood Count 6.4 T/CUMM (4-12)
[2019-07-25 06:07] LABS: Alanine Aminotransferase < 9 U/L (13-56); Albumin 1.8 G/DL (3.4-5.0); Alkaline Phosphatase 60 U/L (45-117); Aspartate Amino Transferase 10 U/L (0-37); Blood Urea Nitrogen 8 MG/DL (7-18); Calcium 8.5 MG/DL (8.5-10.1); Estimated Glom Filtration Rate 48 ML/MIN; Glucose 92 MG/DL (74-106); Osmolality,Calculated 270.8 MOS/KG (273-304)
[2019-07-25] MEDS: COLCHICINE 0.6 MG CAPSULE PO SCH (08:56)
[2019-07-25] MEDS: MAGNESIUM CHLORIDE 64 MG TABLET PO SCH (08:56)
[2019-07-25] MEDS: PANTOPRAZOLE 40 MG TABLET PO SCH (08:57)
[2019-07-25] MEDS: METOPROLOL TARTRATE 100 MG TABLET PO SCH ×2 (08:57→22:03)
[2019-07-25] MEDS: amLODIPine 5 MG TABLET PO SCH (08:57)
[2019-07-25] MEDS: DOCUSATE SODIUM 100 MG CAPSULE PO SCH ×2 (08:57→22:03)
[2019-07-25] MEDS: POTASSIUM CHLORIDE RIDER 10 MEQ in PREMIX 1 EACH IV PRN ×3 (09:46→12:09)
[2019-07-25] MEDS: DEXTROSE 5% LACTATED RINGERS 1,000 ML IV SCH (12:11)
[2019-07-25] MEDS: LEVOFLOXACIN INJ 500 MG in PREMIX 1 EACH IV SCH (17:50)
[2019-07-25] MEDS: traMADol 50 MG TABLET PO PRN (22:04)
[2019-07-25] MEDS: ONDANSETRON 4 MG/2 ML VIAL IV PRN (22:43)
[2019-07-26] MEDS: DEXTROSE 5% LACTATED RINGERS 1,000 ML IV SCH ×3 (02:16→22:09)
[2019-07-26 06:06] LABS: Basophils % 0.4 % (0.0-0.8); Eosinophils # 0.3 10*3/uL (0.0-0.87); Eosinophils % 4.9 % (0.00-10.9); Hematocrit 31.8 VOL% (35.7-47.0); Hemoglobin 10.7 GM/DL (12.0-16.0); Immature Granulocytes % 0.4 %; Immature Granulocytes Absolute 0.03 #; Lymphocytes # 1.2 10*3/uL (1.4-4.0); Lymphocytes % 17.5 % (21.3-54.2); Mean Corpuscular HGB Conc 33.6 GM/DL (32-36); Mean Corpuscular Volume 86.6 FL (87-102); Mean Platelet Volume 8.9 FL (9.6-12.0); Monocytes % 8.1 % (1.7-12.7); Neutrophils % 68.7 % (38.7-73.9); Platelet Count 160 T/CUMM (130-400); Red Blood Count 3.67 MC/CUMM (3.8-5.5); Red Cell Distribution Width 13.2 % (9.3-17.3); White Blood Count 6.8 T/CUMM (4-12)
[2019-07-26 06:19] LABS: Alanine Aminotransferase < 9 U/L (13-56); Albumin 1.8 G/DL (3.4-5.0); Alkaline Phosphatase 62 U/L (45-117); Aspartate Amino Transferase 10 U/L (0-37); Blood Urea Nitrogen 7 MG/DL (7-18); Calcium 8.3 MG/DL (8.5-10.1); Estimated Glom Filtration Rate 54 ML/MIN; Glucose 106 MG/DL (74-106); Osmolality,Calculated 267.1 MOS/KG (273-304)
[2019-07-26] MEDS: METOPROLOL TARTRATE 100 MG TABLET PO SCH ×2 (08:41→21:57)
[2019-07-26] MEDS: amLODIPine 5 MG TABLET PO SCH (08:41)
[2019-07-26] MEDS: PANTOPRAZOLE 40 MG TABLET PO SCH (08:41)
[2019-07-26] MEDS: COLCHICINE 0.6 MG CAPSULE PO SCH (08:41)
[2019-07-26] MEDS: DOCUSATE SODIUM 100 MG CAPSULE PO SCH ×2 (08:41→21:57)
[2019-07-26] MEDS: MAGNESIUM CHLORIDE 64 MG TABLET PO SCH (08:42)
[2019-07-26] MEDS: MAGNESIUM SULF RIDER 4 GM in PREMIX 1 EACH IV PRN (09:46)
[2019-07-26] MEDS: traMADol 50 MG TABLET PO PRN (21:57)
[2019-07-27 07:00] LABS: Basophils % 0.4 % (0.0-0.8); Eosinophils # 0.4 10*3/uL (0.0-0.87); Eosinophils % 7.2 % (0.00-10.9); Hematocrit 32.3 VOL% (35.7-47.0); Hemoglobin 10.7 GM/DL (12.0-16.0); Immature Granulocytes % 0.9 %; Immature Granulocytes Absolute 0.05 #; Lymphocytes # 1.1 10*3/uL (1.4-4.0); Lymphocytes % 19.3 % (21.3-54.2); Mean Corpuscular HGB Conc 33.1 GM/DL (32-36); Mean Corpuscular Volume 87.3 FL (87-102); Mean Platelet Volume 9.1 FL (9.6-12.0); Monocytes % 9.2 % (1.7-12.7); Platelet Count 168 T/CUMM (130-400); Red Cell Distribution Width 13.2 % (9.3-17.3); White Blood Count 5.7 T/CUMM (4-12)
[2019-07-27 07:33] LABS: Alanine Aminotransferase < 9 U/L (13-56); Albumin 2.1 G/DL (3.4-5.0); Alkaline Phosphatase 70 U/L (45-117); Aspartate Amino Transferase 12 U/L (0-37); Blood Urea Nitrogen 6 MG/DL (7-18); Calcium 8.7 MG/DL (8.5-10.1); Estimated Glom Filtration Rate 54 ML/MIN; Glucose 109 MG/DL (74-106); Total Protein 5.4 G/DL (6.4-8.3)
[2019-07-27] MEDS: LEVOFLOXACIN INJ 500 MG in PREMIX 1 EACH IV SCH (08:58)
[2019-07-27] MEDS: POTASSIUM CHLORIDE RIDER 10 MEQ in PREMIX 1 EACH IV PRN ×4 (10:11→12:50)
[2019-07-27] MEDS: DOCUSATE SODIUM 100 MG CAPSULE PO SCH ×2 (10:18→21:03)
[2019-07-27] MEDS: DEXTROSE 5% LACTATED RINGERS 1,000 ML IV SCH (10:19)
[2019-07-27] MEDS ORDERED: DIAZEPAM 5 MG TABLET PO ONE (12:34)
[2019-07-27] MEDS: METOPROLOL TARTRATE 100 MG TABLET PO SCH ×2 (14:50→21:03)
[2019-07-27] MEDS ORDERED: MIDAZOLAM 2 MG/2 ML VIAL ONE (17:02)
[2019-07-27] MEDS ORDERED: PROPOFOL 200 MG/20 ML VIAL IV ONE (17:02)
[2019-07-27] MEDS ORDERED: fentaNYL 100 MCG/2 ML VIAL ONE (17:03)
[2019-07-27] MEDS: COLCHICINE 0.6 MG CAPSULE PO SCH (18:12)
[2019-07-27] MEDS: amLODIPine 5 MG TABLET PO SCH (18:12)
[2019-07-27] MEDS: MAGNESIUM CHLORIDE 64 MG TABLET PO SCH (18:13)
[2019-07-27] MEDS: PANTOPRAZOLE 40 MG TABLET PO SCH (18:13)
[2019-07-27] MEDS: traMADol 50 MG TABLET PO PRN (21:03)
[2019-07-27] MEDS: ONDANSETRON 4 MG/2 ML VIAL IV PRN (21:04)
[2019-07-28] MEDS: DEXTROSE 5% LACTATED RINGERS 1,000 ML IV SCH ×3 (00:32→12:29)
[2019-07-28] MEDS: POTASSIUM CHLORIDE 20 MEQ TABLET PO PRN ×2 (04:52→06:55)
[2019-07-28 06:29] LABS: Basophils % 0.4 % (0.0-0.8); Eosinophils # 0.4 10*3/uL (0.0-0.87); Eosinophils % 5.6 % (0.00-10.9); Hematocrit 33.2 VOL% (35.7-47.0); Immature Granulocytes % 0.4 %; Immature Granulocytes Absolute 0.03 #; Lymphocytes # 1.2 10*3/uL (1.4-4.0); Lymphocytes % 15.5 % (21.3-54.2); Mean Corpuscular HGB Conc 33.1 GM/DL (32-36); Mean Corpuscular Volume 85.3 FL (87-102); Monocytes % 9.5 % (1.7-12.7); Neutrophils % 68.6 % (38.7-73.9); Platelet Count 181 T/CUMM (130-400); Red Blood Count 3.89 MC/CUMM (3.8-5.5); Red Cell Distribution Width 13.3 % (9.3-17.3); White Blood Count 7.7 T/CUMM (4-12)
[2019-07-28 07:04] LABS: Albumin 2.3 G/DL (3.4-5.0); Bilirubin,Total 1.2 MG/DL (0.2-1.0); Calcium 8.4 MG/DL (8.5-10.1); Osmolality,Calculated 267.1 MOS/KG (273-304); Total Protein 5.5 G/DL (6.4-8.3)
[2019-07-28] MEDS: PANTOPRAZOLE 40 MG TABLET PO SCH (08:29)
[2019-07-28] MEDS: METOPROLOL TARTRATE 100 MG TABLET PO SCH ×2 (08:29→21:16)
[2019-07-28] MEDS: LEVOFLOXACIN INJ 500 MG in PREMIX 1 EACH IV SCH (08:29)
[2019-07-28] MEDS: amLODIPine 5 MG TABLET PO SCH (08:29)
[2019-07-28] MEDS: COLCHICINE 0.6 MG CAPSULE PO SCH (08:29)
[2019-07-28] MEDS: MAGNESIUM CHLORIDE 64 MG TABLET PO SCH (08:29)
[2019-07-28] MEDS: DOCUSATE SODIUM 100 MG CAPSULE PO SCH ×2 (08:29→21:16)
[2019-07-28] MEDS ORDERED: busPIRone 5 MG TABLET PO PRN (11:23)
[2019-07-28] MEDS ORDERED: TUBERCULIN SKIN TEST 0.1 ML SYRINGE INTRADERM ONE (15:15)
[2019-07-28] MEDS: ROSUVASTATIN 20 MG TABLET PO SCH (21:16)
[2019-07-29] MEDS: DEXTROSE 5% LACTATED RINGERS 1,000 ML IV SCH ×2 (04:06→17:22)
[2019-07-29] MEDS: PANTOPRAZOLE 40 MG TABLET PO SCH (08:56)
[2019-07-29] MEDS: DOCUSATE SODIUM 100 MG CAPSULE PO SCH ×2 (08:56→20:48)
[2019-07-29] MEDS: METOPROLOL TARTRATE 100 MG TABLET PO SCH ×2 (08:57→20:48)
[2019-07-29] MEDS: COLCHICINE 0.6 MG CAPSULE PO SCH (08:57)
[2019-07-29] MEDS: MAGNESIUM CHLORIDE 64 MG TABLET PO SCH (08:57)
[2019-07-29] MEDS: amLODIPine 5 MG TABLET PO SCH (08:57)
[2019-07-29] MEDS: LEVOFLOXACIN INJ 500 MG in PREMIX 1 EACH IV SCH (09:11)
[2019-07-29 15:49] LABS: Calcium 8.5 MG/DL (8.5-10.1); Osmolality,Calculated 268.1 MOS/KG (273-304)
[2019-07-29] MEDS: traMADol 50 MG TABLET PO PRN (20:48)
[2019-07-29] MEDS: ROSUVASTATIN 20 MG TABLET PO SCH (20:48)
[2019-07-29] MEDS: MAGNESIUM SULF RIDER 2 GM in PREMIX 1 EACH IV PRN (20:49)
[2019-07-30] MEDS: PANTOPRAZOLE 40 MG TABLET PO SCH (09:09)
[2019-07-30] MEDS: amLODIPine 5 MG TABLET PO SCH (09:09)
[2019-07-30] MEDS: POTASSIUM CHLORIDE 20 MEQ TABLET PO PRN ×2 (09:09→15:08)
[2019-07-30] MEDS: DOCUSATE SODIUM 100 MG CAPSULE PO SCH ×2 (09:09→22:03)
[2019-07-30] MEDS: MAGNESIUM CHLORIDE 64 MG TABLET PO SCH (09:09)
[2019-07-30] MEDS: METOPROLOL TARTRATE 100 MG TABLET PO SCH ×2 (09:09→22:02)
[2019-07-30] MEDS: COLCHICINE 0.6 MG CAPSULE PO SCH (09:09)
[2019-07-30] MEDS: DEXTROSE 5% LACTATED RINGERS 1,000 ML IV SCH ×2 (20:23→22:03)
[2019-07-30] MEDS: LEVOFLOXACIN 250 MG TABLET PO SCH (22:02)
[2019-07-30] MEDS: traMADol 50 MG TABLET PO PRN (22:02)
[2019-07-30] MEDS: ROSUVASTATIN 20 MG TABLET PO SCH (22:03)
[2019-07-31] MEDS: MAGNESIUM CHLORIDE 64 MG TABLET PO SCH (08:46)
[2019-07-31] MEDS: COLCHICINE 0.6 MG CAPSULE PO SCH (08:46)
[2019-07-31] MEDS: amLODIPine 5 MG TABLET PO SCH (08:47)
[2019-07-31] MEDS: METOPROLOL TARTRATE 100 MG TABLET PO SCH ×2 (08:47→21:04)
[2019-07-31] MEDS: DEXTROSE 5% LACTATED RINGERS 1,000 ML IV SCH (08:47)
[2019-07-31] MEDS: PANTOPRAZOLE 40 MG TABLET PO SCH (08:47)
[2019-07-31] MEDS: LEVOFLOXACIN 250 MG TABLET PO SCH (08:47)
[2019-07-31] MEDS: DOCUSATE SODIUM 100 MG CAPSULE PO SCH ×2 (08:47→21:02)
[2019-07-31] MEDS: MAGNESIUM SULF RIDER 2 GM in PREMIX 1 EACH IV PRN (11:00)
[2019-07-31] MEDS: POTASSIUM CHLORIDE 20 MEQ TABLET PO PRN ×2 (11:01→13:49)
[2019-07-31] MEDS: CEFEPIME 1,000 MG in SODIUM CHLORIDE 0.9% 100 ML IV SCH ×2 (11:03→18:02)
[2019-07-31] MEDS: ONDANSETRON 4 MG/2 ML VIAL IV PRN (16:35)
[2019-07-31] MEDS: traMADol 50 MG TABLET PO PRN (17:57)
[2019-07-31 18:32] LABS: Apearance,Urine CLEAR (Clear); Bilirubin,Urine Negative (Negative); Blood, Urine Negative (Negative); Glucose,Urine (UA) Negative (Negative); Hyaline Casts,Urine 1 /LPF (0-3); Ketones,Urine Negative (Negative); Mucus,Urine Occasional /LPF (Occasional); Nitrite,Urine Negative (Negative); Protein,Urine Negative; RBC,Urine 1 /HPF (0-4); Squamous Epithelial Cell,Urine Occasional /HPF (0-10); Urine Color Yellow (Yellow); Urine Specific Gravity 1.012 (1.001-1.035); Urine Urobilinogen < 2.0 EU/DL (0.2-1.0); WBC,Urine 4 /HPF (0-6)
[2019-07-31] MEDS: ROSUVASTATIN 20 MG TABLET PO SCH (21:02)
[2019-07-31] MEDS ORDERED: hydrALAZINE 20 MG/1 ML VIAL IV PRN (21:15)
[2019-08-01] MEDS: CEFEPIME 1,000 MG in SODIUM CHLORIDE 0.9% 100 ML IV SCH ×3 (03:50→18:21)
[2019-08-01 06:05] LABS: Basophils % 0.5 % (0.0-0.8); Eosinophils # 0.4 10*3/uL (0.0-0.87); Eosinophils % 9.6 % (0.00-10.9); Hematocrit 30.5 VOL% (35.7-47.0); Immature Granulocytes % 1.2 %; Immature Granulocytes Absolute 0.05 #; Lymphocytes # 1.3 10*3/uL (1.4-4.0); Lymphocytes % 31.1 % (21.3-54.2); Mean Corpuscular HGB Conc 32.8 GM/DL (32-36); Mean Corpuscular Volume 86.2 FL (87-102); Mean Platelet Volume 9.1 FL (9.6-12.0); Monocytes % 13.2 % (1.7-12.7); Neutrophils % 44.4 % (38.7-73.9); Platelet Count 163 T/CUMM (130-400); Red Blood Count 3.54 MC/CUMM (3.8-5.5); Red Cell Distribution Width 13.8 % (9.3-17.3); White Blood Count 4.3 T/CUMM (4-12)
[2019-08-01 06:32] LABS: Albumin 2.4 G/DL (3.4-5.0); Bilirubin,Total 1.4 MG/DL (0.2-1.0); Calcium 8.6 MG/DL (8.5-10.1); Total Protein 5.2 G/DL (6.4-8.3)
[2019-08-01] MEDS: amLODIPine 5 MG TABLET PO SCH (08:45)
[2019-08-01] MEDS: COLCHICINE 0.6 MG CAPSULE PO SCH (08:45)
[2019-08-01] MEDS: TRIAMTERENE/HCTZ 37.5-25 MG TABLET PO SCH (08:45)
[2019-08-01] MEDS: LOSARTAN 50 MG TABLET PO SCH ×2 (08:45→21:31)
[2019-08-01] MEDS: MAGNESIUM CHLORIDE 64 MG TABLET PO SCH (08:45)
[2019-08-01] MEDS: POTASSIUM CHLORIDE 20 MEQ TABLET PO PRN (08:45)
[2019-08-01] MEDS: PANTOPRAZOLE 40 MG TABLET PO SCH (08:46)
[2019-08-01] MEDS: DOCUSATE SODIUM 100 MG CAPSULE PO SCH ×2 (08:46→21:31)
[2019-08-01] MEDS: METOPROLOL TARTRATE 100 MG TABLET PO SCH ×2 (08:46→21:31)
[2019-08-01] MEDS: ROSUVASTATIN 20 MG TABLET PO SCH (21:31)
[2019-08-02] MEDS: CEFEPIME 1,000 MG in SODIUM CHLORIDE 0.9% 100 ML IV SCH ×3 (03:44→18:13)
[2019-08-02 05:53] LABS: Basophils % 0.7 % (0.0-0.8); Eosinophils # 0.4 10*3/uL (0.0-0.87); Eosinophils % 9.8 % (0.00-10.9); Hematocrit 29.5 VOL% (35.7-47.0); Hemoglobin 9.7 GM/DL (12.0-16.0); Immature Granulocytes % 0.9 %; Immature Granulocytes Absolute 0.04 #; Lymphocytes # 1.3 10*3/uL (1.4-4.0); Lymphocytes % 27.7 % (21.3-54.2); Mean Corpuscular HGB Conc 32.9 GM/DL (32-36); Mean Corpuscular Volume 85.8 FL (87-102); Mean Platelet Volume 9.1 FL (9.6-12.0); Monocytes % 11.5 % (1.7-12.7); Neutrophils % 49.4 % (38.7-73.9); Platelet Count 149 T/CUMM (130-400); Red Blood Count 3.44 MC/CUMM (3.8-5.5); Red Cell Distribution Width 13.8 % (9.3-17.3); White Blood Count 4.5 T/CUMM (4-12)
[2019-08-02 06:20] LABS: Albumin 2.3 G/DL (3.4-5.0); Bilirubin,Total 1.4 MG/DL (0.2-1.0); Calcium 8.7 MG/DL (8.5-10.1); Osmolality,Calculated 269.1 MOS/KG (273-304); Total Protein 5.2 G/DL (6.4-8.3)
[2019-08-02] MEDS: POTASSIUM CHLORIDE 20 MEQ TABLET PO PRN (08:07)
[2019-08-02] MEDS: METOPROLOL TARTRATE 100 MG TABLET PO SCH ×2 (08:07→20:35)
[2019-08-02] MEDS: MAGNESIUM CHLORIDE 64 MG TABLET PO SCH (08:07)
[2019-08-02] MEDS: COLCHICINE 0.6 MG CAPSULE PO SCH (08:07)
[2019-08-02] MEDS: MAGNESIUM SULF RIDER 2 GM in PREMIX 1 EACH IV PRN (08:07)
[2019-08-02] MEDS: DOCUSATE SODIUM 100 MG CAPSULE PO SCH ×2 (08:07→20:35)
[2019-08-02] MEDS: LOSARTAN 50 MG TABLET PO SCH ×2 (08:08→20:35)
[2019-08-02] MEDS: PANTOPRAZOLE 40 MG TABLET PO SCH (08:08)
[2019-08-02] MEDS: TRIAMTERENE/HCTZ 37.5-25 MG TABLET PO SCH (08:08)
[2019-08-02] MEDS: amLODIPine 5 MG TABLET PO SCH (08:08)
[2019-08-02] MEDS: traMADol 50 MG TABLET PO PRN (18:13)
[2019-08-02] MEDS: ROSUVASTATIN 20 MG TABLET PO SCH (20:35)
[2019-08-03] MEDS: ONDANSETRON 4 MG/2 ML VIAL IV PRN (00:03)
[2019-08-03] MEDS: CEFEPIME 1,000 MG in SODIUM CHLORIDE 0.9% 100 ML IV SCH ×2 (02:51→11:35)
[2019-08-03 06:17] LABS: Basophils % 0.7 % (0.0-0.8); Eosinophils # 0.6 10*3/uL (0.0-0.87); Eosinophils % 10.3 % (0.00-10.9); Hematocrit 28.5 VOL% (35.7-47.0); Hemoglobin 9.3 GM/DL (12.0-16.0); Immature Granulocytes % 0.5 %; Immature Granulocytes Absolute 0.03 #; Lymphocytes # 1.7 10*3/uL (1.4-4.0); Lymphocytes % 31.5 % (21.3-54.2); Mean Corpuscular HGB Conc 32.6 GM/DL (32-36); Mean Corpuscular Volume 85.1 FL (87-102); Mean Platelet Volume 9.6 FL (9.6-12.0); Platelet Count 155 T/CUMM (130-400); Red Blood Count 3.35 MC/CUMM (3.8-5.5); White Blood Count 5.5 T/CUMM (4-12)
[2019-08-03 06:49] LABS: Alanine Aminotransferase < 9 U/L (13-56); Albumin 2.5 G/DL (3.4-5.0); Alkaline Phosphatase 73 U/L (45-117); Aspartate Amino Transferase 11 U/L (0-37); Blood Urea Nitrogen 12 MG/DL (7-18); Calcium 8.8 MG/DL (8.5-10.1); Estimated Glom Filtration Rate 47 ML/MIN; Glucose 94 MG/DL (74-106); Total Protein 5.3 G/DL (6.4-8.3)
[2019-08-03 07:39] LABS: Eosinophils 9 % (0-10); Hypochromasia 1+; Lymphocytes 38 % (20-55); Nucleated Red Blood Cells 3 (0-5); Segmented Neutrophils 44 % (50-85); Total Cells Counted 100
[2019-08-03 07:40] LABS: Microcytosis Slight
[2019-08-03 07:41] LABS: Platelet Estimate Adequate; Tear Drop Cells Slight
[2019-08-03] MEDS: LOSARTAN 50 MG TABLET PO SCH (09:07)
[2019-08-03] MEDS: METOPROLOL TARTRATE 100 MG TABLET PO SCH (09:07)
[2019-08-03] MEDS: COLCHICINE 0.6 MG CAPSULE PO SCH (09:07)
[2019-08-03] MEDS: amLODIPine 5 MG TABLET PO SCH (09:07)
[2019-08-03] MEDS: DOCUSATE SODIUM 100 MG CAPSULE PO SCH (09:07)
[2019-08-03] MEDS: TRIAMTERENE/HCTZ 37.5-25 MG TABLET PO SCH (09:08)
[2019-08-03] MEDS: PANTOPRAZOLE 40 MG TABLET PO SCH (09:09)
[2019-08-03] MEDS: MAGNESIUM CHLORIDE 64 MG TABLET PO SCH (09:09)
[2019-08-03 15:51] VITALS: BP 128/74
== END 2019-08-03 15:55 | DRG 329 ==
LOC: N.ED 08:54 → N.EDINP 10:33 → N.3E 13:29 → N.5E 07-22 15:07
PROVIDERS: ADMIT Family Medicine; ATTEND Family Medicine